=== PATIENT | female | born 2000 | race American Indian/Alaskan Native ===

== ENCOUNTER 2022-02-07 19:49 | Outpatient (CLI) | payer MEDICAID ==
[2022-02-07] MEDS ORDERED: LACTATED RINGERS 500 ML IV ONE (20:20)
[2022-02-07 21:33] VITALS: BP 107/65
== END 2022-02-07 21:55 | disposition home or self-care (01) ==
LOC: TRG 19:49 → APU 19:57 → TRG 21:55
PROVIDERS: ATTEND Obstetrics & Gynecology
DX: O26.853 Spotting complicating pregnancy, third trimester (principal); Z3A.30 30 weeks gestation of pregnancy
CPT/HCPCS: 36415; 59025; 84112